=== PATIENT | female | born 1975 | race Caucasian/White ===

== ENCOUNTER 2020-05-25 10:17 | Emergency (ER) | payer OTHER ==
[2020-05-25 11:01] LABS: INR 1.09 (0.8-3.0); PROTIME 12.3 SECONDS (9.95-12.35)
[2020-05-25 11:03] LABS: PTT 28.3 SECONDS (25.3-37.0)
[2020-05-25 11:05] LABS: Absolute Neutrophil Ct (ANC) 5.38 (1.4-6.9); BASOPHIL % 0.2 % (0.0-0.4); Basophil (Absolute #) 0.02 (0-0.4); Eosinophil % 2.1 % (0.00-5.0); Eosinophil (Absolute #) 0.17 (0-0.5); Hematocrit 45.4 % (35-47); Hemoglobin 14.6 gm/dl (12.0-16.0); Lymphocyte (Absolute #) 1.83 (1.0-4.6); Lymphocytes % 22.5 % (24.0-44.0); Mean Cell Volume 89.7 fl (78-100); Mean Corpuscular Hemoglobin 28.9 pg (26-32); Mean Corpuscular Hgb Concent. 32.2 g/dl (32-36); Mean Platelet Volume 9.4 fl (7.5-11.0); Monocyte (Absolute #) 0.73 (0.0-1.3); Neutrophil % 66.2 % (36.0-66.0); Platelet Count 366 K/mm3 (150-450); Red Blood Count 5.06 M/mm3 (4.1-5.4); Red Cell Distribution Width 12.7 % (11.5-14.0); White Blood Count 8.1 K/mm3 (4.0-10.5)
--- NOTE | 2020-05-25 11:11 | XRAY ---
Indication: Cough. Comparison: August 28, 2010. Portable chest again demonstrates normal heart, lungs, and bony thorax.
--- NOTE | 2020-05-25 11:25 | ERPHSYRPT ---
- History of Present Illness Source: patient Exam Limitations: no limitations Patient Subjective Stated Complaint: SOB Triage Nursing Assessment: Patient ambulated back to ED and transferred self to bed. Patient A+O X3. Patient's skin pink, warm and dry. Patient complains of increased SOB and cough with chest tightness over the past few days. Patient tested Positive for Covid on 05/06/2020. Lungs clear a/p fabiana. Patient denies pain or discomfort. Physician History: 44 yo wf who tested + for CV19 presents w 2-3 days of dyspnea which is worse w coughing and exertion. Pt has some mild chest tightness but denies N/V/D/melena/hematochezia. She still has a mild non-productive cough. Timing/Duration: day(s) (2-3days) Activities at Onset: activity Severity of Dyspnea-Max: mild Severity of Dyspnea-Current: mild Possible Cause: occasional episodes Modifying Factors: Improves With: coughing Associated Symptoms: cough, chest pain/discomfort, No edema, No fever, No insom jovany, No loss of appetite, No lightheadedness, No wheezing, No weakness, No ankle swelling, No chills, No hemoptysis, No calf pain, No dizziness, No heaviness, No heart racing, No lightheadedness, No leg swelling, No muscle spasms feet, No muscle spasms hands, No painful breathing, No productive cough, No sweating, No tightness, No tingling face, No tingling hands Allergies/Adverse Reactions: amoxicillin Allergy (Verified 05/25/20 10:18) Home Medications: Lisinopril 10 mg [Zestril 10 MG] 1 tab PO HS 05/25/20 [History] Metformin HCl 500 mg [Glucophage 500 MG] 1 tab PO HS 05/25/20 [History] Hx Influenza Vaccination/Date Given: No Hx Pneumococcal Vaccination/Date Given: No Immunizations Up to Date: Yes Travel Risk - International Travel Have you traveled outside of the country in past 3 weeks: No - Coronavirus Screening Are you exhibiting any of the following symptoms?: Yes Symptoms: Shortness of Breath Close contact with a COVID-19 positive Pt in past 14-21 Days: No - Review of Systems Constitutional: No Symptoms, Lethargy Eyes: No Symptoms Ears, Nose, & Throat: No Symptoms Respiratory: Cough, Dyspnea, Dyspnea on Exertion (CARR) Cardiac: No Symptoms Abdominal/Gastrointestinal: No Symptoms Genitourinary Symptoms: No Symptoms Musculoskeletal: No Symptoms Skin: No Symptoms Neurological: No Symptoms Psychological: No Symptoms Endocrine: No Symptoms Hematologic/Lymphatic: No Symptoms Immunological/Allergic: No Symptoms - Past Medical History Pertinent Past Medical History: Yes Neurological History: No Pertinent History ENT History: No Pertinent History Cardiac History: Hypertension Respiratory History: No Pertinent History Endocrine Medical History: Diabetes Type II Musculoskeletal History: No Pertinent History GI Medical History: No Pertinent History History: No Pertinent History Psycho-Social History: No Pertinent History Female Reproductive Disorders: No Pertinent History - Past Surgical History Past Surgical History: No Neuro Surgical History: No Pertinent History Cardiac: No Pertinent History Respiratory: No Pertinent History Gastrointestinal: No Pertinent History Genitourinary: No Pertinent History Musculoskeletal: No Pertinent History Female Surgical History: No Pertinent History - Social History Smoking Status: Never smoker Exposure to second hand smoke: Yes Drug Use: none Patient Lives Alone: No Significant Family History: no pertinent family hx - Female History Hx Last Menstrual Period: one week ago Hx Now: No - Nursing Vital Signs Nursing Vital Signs: Initial Vital Signs Temperature 98.5 F 05/25/20 10:20 Pulse Rate 104 H 05/25/20 10:20 Respiratory Rate 18 05/25/20 10:20 Blood Pressure 153/121 05/25/20 10:20 O2 Sat by Pulse Oximetry 96 05/25/20 10:20 Pain Scale Pain Intensity 0 - Physical Exam General Appearance: no apparent distress Eye Exam: PERRL/EOMI, eyes nml inspection Ears, Nose, Throat Exam: hearing grossly normal, normal ENT inspection, normal pharynx Neck Exam: normal inspection, non-tender, supple, full range of motion, No Brudzinski, No Kernig's, No meningismus, No carotid bruit Respiratory Exam: normal breath sounds, lungs clear, airway intact, No respiratory distress Cardiovascular/Chest Exam: normal heart sounds, regular rate/rhythm, normal peripheral pulses, No murmur Abdominal/Gastrointestinal Exam: soft, normal bowel sounds, tenderness Extremity Exam: non-tender, normal range of motion, normal inspection, normal capillary refill Peripheral Pulses Exam: carotid (R): 2+, carotid (L): 2+ Neurologic Exam: alert, oriented x 3, cooperative, tool distributor II-XII nml as tested, normal mood/affect, nml cerebellar function, nml station & gait, sensation nml, No motor deficits, No sensory deficit Skin Exam: normal color Lymphatic Exam: No adenopathy SpO2 Interpretation: normal SpO2: 96 O2 Delivery: Room Air - Course Nursing assessment & vital signs reviewed: Yes EKG Interpreted by Me: RATE (NSR/R95/Normal QT-QTc/nonspecific ST changes) - Radiology Exams Chest X-ray Interpretation: Discussed w/ radiologist (Nothing acute) Ordered Tests: Active Orders 24 hr Category Date Time Status EKG-ER Only STAT Care 05/25/20 10:36 Completed IV Insertion STAT Care 05/25/20 10:36 Completed CHEST 1 VIEW (PORTABLE) Stat Exams 05/25/20 10:36 Completed CBC W DIFF Stat Lab 05/25/20 10:53 Completed CMP Stat Lab 05/25/20 10:53 Completed D-DIMER QUANTITATIVE Stat Lab 05/25/20 10:53 Completed NT PRO BNP Stat Lab 05/25/20 10:53 Completed PROTIME WITH INR Stat Lab 05/25/20 10:53 Completed PTT Stat Lab 05/25/20 10:53 Completed TROPONIN Q3H Lab 05/25/20 10:53 Completed TROPONIN Q3H Lab 05/25/20 13:45 Ordered TROPONIN Q3H Lab 05/25/20 16:45 Ordered TROPONIN Q3H Lab 05/25/20 19:45 Ordered TROPONIN Q3H Lab 05/25/20 22:45 Ordered Lab/Rad Data: Laboratory Result Diagrams 05/25/20 10:53 05/25/20 10:53 Laboratory Results 05/25/20 05/25/20 05/25/20 Range/Units 10:53 10:53 10:53 WBC (4.0-10.5) K/mm3 RBC (4.1-5.4) M/mm3 Hgb (12.0-16.0) gm/dl Hct (35-47) % MCV (78-100) fl MCH (26-32) pg MCHC (32-36) g/dl RDW (11.5-14.0) % Plt Count (150-450) K/mm3 MPV (7.5-11.0) fl Gran % (36.0-66.0) % Eos # (Auto) (0-0.5) Absolute Lymphs (auto) (1.0-4.6) Absolute Monos (auto) (0.0-1.3) Lymphocytes % (24.0-44.0) % Monocytes % (0.0-12.0) % Eosinophils % (0.00-5.0) % Basophils % (0.0-0.4) % Absolute Granulocytes (1.4-6.9) Basophils # (0-0.4) PT 12.3 (9.95-12.35) SECONDS INR 1.09 (0.8-3.0) APTT 28.3 (25.3-37.0) SECONDS D-Dimer 429 (215-500) ng/mL Sodium 139 (137-145) mmol/L Potassium 4.2 (3.5-5.1) mmol/L Chloride 103 (98-107) mmol/L Carbon Dioxide 29 (22-30) mmol/L Anion Gap 11.8 (5-15) MEQ/L BUN 14 (7-17) mg/dL Creatinine 0.65 (0.52-1.04) mg/dL Estimated GFR > 60.0 ML/MIN Glucose 99 (74-106) mg/dL Calcium 9.6 (8.4-10.2) mg/dL Total Bilirubin 1.00 (0.2-1.3) mg/dL AST 30 (14-36) U/L ALT 43 H (0-35) U/L Alkaline Phosphatase 59 (38-126) U/L Troponin I < 0.012 (0.000-0.034) ng/mL NT-Pro-B Natriuret Pep 21.9 (0-450) pg/mL Serum Total Protein 8.1 (6.3-8.2) g/dL Albumin 4.7 (3.5-5.0) g/dL 05/25/20 Range/Units 10:53 WBC 8.1 (4.0-10.5) K/mm3 RBC 5.06 (4.1-5.4) M/mm3 Hgb 14.6 (12.0-16.0) gm/dl Hct 45.4 (35-47) % MCV 89.7 (78-100) fl MCH 28.9 (26-32) pg MCHC 32.2 (32-36) g/dl RDW 12.7 (11.5-14.0) % Plt Count 366 (150-450) K/mm3 MPV 9.4 (7.5-11.0) fl Gran % 66.2 H (36.0-66.0) % Eos # (Auto) 0.17 (0-0.5) Absolute Lymphs (auto) 1.83 (1.0-4.6) Absolute Monos (auto) 0.73 (0.0-1.3) Lymphocytes % 22.5 L (24.0-44.0) % Monocytes % 9.0 (0.0-12.0) % Eosinophils % 2.1 (0.00-5.0) % Basophils % 0.2 (0.0-0.4) % Absolute Granulocytes 5.38 (1.4-6.9) Basophils # 0.02 (0-0.4) PT (9.95-12.35) SECONDS INR (0.8-3.0) APTT (25.3-37.0) SECONDS D-Dimer (215-500) ng/mL Sodium (137-145) mmol/L Potassium (3.5-5.1) mmol/L Chloride (98-107) mmol/L Carbon Dioxide (22-30) mmol/L Anion Gap (5-15) MEQ/L BUN (7-17) mg/dL Creatinine (0.52-1.04) mg/dL Estimated GFR ML/MIN Glucose (74-106) mg/dL Calcium (8.4-10.2) mg/dL Total Bilirubin (0.2-1.3) mg/dL AST (14-36) U/L ALT (0-35) U/L Alkaline Phosphatase (38-126) U/L Troponin I (0.000-0.034) ng/mL NT-Pro-B Natriuret Pep (0-450) pg/mL Serum Total Protein (6.3-8.2) g/dL Albumin (3.5-5.0) g/dL - Progress Progress Note: 05/25/20 11:54 Pt stable during stay. Blood pressure decreased wo treatment. Counseled pt/family regarding: lab results, diagnosis, need for follow-up, rad results - Departure Departure Disposition: Home Clinical Impression: Dyspnea Condition: Stable Critical Care Time: No Referrals: KAYLA FERNANDEZ MD [Primary Care Provider] - Instructions: Shortness of Breath (Dyspnea) (DC) Additional Instructions: Return to ER for chest pain or increasing shortness of breath Forms: Work/School Release Form
[2020-05-25 11:40] LABS: ALBUMIN 4.7 g/dL (3.5-5.0); ALKALINE PHOSPHATASE 59 U/L (38-126); ANION GAP 11.8 MEQ/L (5-15); BLOOD UREA NITROGEN 14 mg/dL (7-17); CHLORIDE 103 mmol/L (98-107); Calcium 9.6 mg/dL (8.4-10.2); Carbon Dioxide 29 mmol/L (22-30); Creatinine 1 0.65 mg/dL (0.52-1.04); EST GLOMERULAR FILTRATION RATE > 60.0 ML/MIN; Glucose 99 mg/dL (74-106); NT PRO BNP 21.9 pg/mL (0-450); Potassium 4.2 mmol/L (3.5-5.1); SGOT/AST 30 U/L (14-36); SGPT/ALT 43 U/L (0-35); SODIUM 139 mmol/L (137-145); Total Protein 8.1 g/dL (6.3-8.2)
[2020-05-25 12:17] VITALS: BP 132/82; PULSE 76
[2020-05-25 12:40] VITALS: O2SAT 96
== END 2020-05-25 12:04 | disposition home or self-care (01) ==
LOC: ED 10:17
DX: R06.00 Dyspnea, unspecified (principal); R05 Cough; R07.89 Other chest pain; Z79.899 Other long term (current) drug therapy; I10 Essential (primary) hypertension; E11.9 Type 2 diabetes mellitus without complications
CPT/HCPCS: 36000; 36415; 71045; 80053; 83880; 84484; 85025; 85379; 85610; 85730; 93005; 99284

== ENCOUNTER 2021-04-02 05:40 | Day surgery (SDC) | payer OTHER ==
[2021-04-02] MEDS ORDERED: Lactated Ringers 1,000 ML IV ONE (06:21)
[2021-04-02] MEDS ORDERED: Lactated Ringers 1,000 ML IV SCH (07:00)
[2021-04-02] MEDS ORDERED: Versed 2 MG/2 ML Injection ONE (07:25)
[2021-04-02] MEDS ORDERED: DIPRIVAN 200 MG/20 ML IV ONE ×2 (07:26→07:47)
[2021-04-02] MEDS ORDERED: SUBLIMAZE 100 MCG/2 ML ONE (07:40)
--- NOTE | 2021-04-02 14:30 | OP ---
SURGERY DATE/TIME: 04/02/2021 0729 PREOPERATIVE DIAGNOSIS: Screening exam. POSTOPERATIVE DIAGNOSIS: Normal colon. PROCEDURE: Colonoscopy. SURGEON: Dr. Hansen. ANESTHESIA: MAC. Medications given by anesthesia department. HISTORY: The patient is a 45-year-old white female who presents now for screening colonoscopy. The patient was appraised of the risks of the procedure including the risk of perforation, phlebitis, untoward reaction to medication, bleeding and missed lesions. The patient verbalized her understanding and desired to have the procedure performed. DESCRIPTION OF PROCEDURE: The patient is placed in left lateral decubitus position. Digital rectal examination was performed and revealed normal anal sphincter tone and no masses. The flexible Olympus pediatric colonoscope was used to intubate the rectum. A view of the colon was developed sequentially to the cecum. Upon insertion and withdrawal, including a retroflex view in the rectum, no mucosal lesions were encountered. The scope was removed from the patient who tolerated the procedure well and was sent back to OP recovery in good condition. The prep was noted to be fair.
[2021-04-02 17:10] VITALS: BP 124/86; PULSE 72; O2SAT 98
== END 2021-04-02 08:45 | disposition home or self-care (01) ==
LOC: SDC 05:40
PROVIDERS: ATTEND Family Medicine
DX: Z12.11 Encounter for screening for malignant neoplasm of colon (principal); E11.8 Type 2 diabetes mellitus with unspecified complications
CPT/HCPCS: 82947; J2250; J2704; J3010

== ENCOUNTER 2024-08-30 08:11 | Day surgery (SDC) | payer OTHER ==
[~2024-08-30 08:11] MED LIST: Sensorcaine 0.25% 10 ML ONE; Sodium Chloride 0.9% 1000 ML 1,000 ML ONE
[2024-08-30] MEDS ORDERED: Lactated Ringers 1,000 ML IV ONE ×2 (08:12→11:38)
[2024-08-30] MEDS ORDERED: CLINDAMYCIN-D5W 900 MG/50 ML*** 900 MG/50 ML BAG IV ONE (08:14)
[2024-08-30] MEDS ORDERED: Levofloxacin 500MG/100ML D5W 500 MG/100 ML BAG IV ONE (08:14)
[2024-08-30] MEDS: Levofloxacin 500MG/100ML D5W 500 MG/100 ML BAG IV SCH (08:20)
[2024-08-30] MEDS: Lactated Ringers 1,000 ML IV SCH (08:20)
[2024-08-30] MEDS: CLINDAMYCIN-D5W 900 MG/50 ML*** 900 MG/50 ML BAG IV SCH (08:21)
[2024-08-30 08:28] LABS: HCG URINE TEST NEGATIVE (NEGATIVE)
[2024-08-30 08:52] LABS: ANION GAP 13.9 MEQ/L (5-15); Calcium 9.4 mg/dL (8.4-10.2); Creatinine 1 0.73 mg/dL (0.52-1.04); EST GLOMERULAR FILTRATION RATE 101.4 ML/MIN; Potassium 4.1 mmol/L (3.5-5.1)
--- NOTE | 2024-08-30 10:05 | HP ---
HISTORY OF PRESENT ILLNESS: Her back pain worsens when rolls over on either side. Sometimes takes her breath away, sometimes upper abdominal pain. Ultrasound with stones. HIDA decreased ejection fraction of 18%. PAST MEDICAL HISTORY: Has some history of spinal stenosis, wears some corrective lenses. HOME MEDICATIONS: Alprazolam, lisinopril. ALLERGIES: Amoxicillin. PAST SURGICAL HISTORY: Tubal in the past. SOCIAL HISTORY: No smoking. Occasional alcohol use. FAMILY HISTORY: Heart disease, CHF. REVIEW OF SYSTEMS: Twelve systems reviewed. No chest pain or palpitations. Other systems negative or noncontributory as above and per preadmission questionnaire. PHYSICAL EXAMINATION: GENERAL: Height 5 feet 4 inches, BMI 37.76. No acute distress. HEENT: Sclerae nonicteric. Extraocular movements intact. Oral mucous membranes moist. NECK: No JVD. CARDIOVASCULAR: Regular rate and rhythm. RESPIRATORY: Equal excursion. Nonlabored breathing. ABDOMEN: Soft. SKIN: Dry. EXTREMITIES: No cyanosis or edema. NEUROLOGICAL: Alert and oriented, moving all extremities symmetrically. PSYCHIATRY: Appropriate mood and affect. IMPRESSION: Acute exacerbation of chronic cholecystitis, symptomatic biliary dyskinesia. Offered cholecystectomy. Risks including but not limited to bleeding; infection; risk of trocar injury or hernia; risk of bile leak, bile duct injury, retained stone or sludge possibly requiring further procedure, either open or ERCP; general risk of anesthesia, DVT, PE, pneumonia; risk of aches, pains, bloating, constipation, and/or loose stools possibly chronic in nature; possibility of no improvement of preop symptoms as she does have some back problems anyway; possibly requiring further workup or studies, endoscopy or referrals. She understands and agreed to the planned procedure. We will proceed with outpatient laparoscopic cholecystectomy, possible open as an outpatient. Otherwise, continue medications for hypertension, anxiety.
[2024-08-30] MEDS ORDERED: Reglan 10 MG/2 ML ONE (10:29)
[2024-08-30] MEDS ORDERED: Transderm Scop 1.5MG Patch ONE (10:29)
[2024-08-30] MEDS ORDERED: Pepcid 20 MG VIAL IV ONE ×2 (10:29→10:31)
[2024-08-30] MEDS ORDERED: Reglan 10 MG/2 ML IV ONE (10:31)
[2024-08-30] MEDS ORDERED: Transderm Scop 1.5MG Patch TOP PRN (10:31)
[2024-08-30] MEDS ORDERED: ROCURONIUM BROMIDE IV ONE (10:50)
[2024-08-30] MEDS ORDERED: DEXMEDETOMIDINE 80 MCG/20ML-NS IV ONE (10:50)
[2024-08-30] MEDS ORDERED: Zofran 4 MG/2 ML VIAL ONE ×2 (10:50→12:29)
[2024-08-30] MEDS ORDERED: dexAMETHasone sodium phosphate ONE (10:50)
[2024-08-30] MEDS ORDERED: Xylocaine-Mpf 2% 5 Ml Vial ONE (10:50)
[2024-08-30] MEDS ORDERED: BRIDION 200MG/2ML IV ONE (10:50)
[2024-08-30] MEDS ORDERED: TORAdol 30 mg Injection ONE (10:50)
[2024-08-30] MEDS ORDERED: propofoL IV ONE (10:50)
[2024-08-30] MEDS ORDERED: SUBLIMAZE 100 MCG/2 ML ONE (10:52)
[2024-08-30] MEDS ORDERED: Versed 2 MG/2 ML Injection ONE (10:52)
[2024-08-30] MEDS ORDERED: Pre-Attached Lta Kit TP ONE (11:07)
[2024-08-30] MEDS ORDERED: PHENYLEPHRINE HCL ONE (11:24)
[2024-08-30] MEDS ORDERED: Compazine 10 MG/2 ML ONE (12:54)
[2024-08-30 13:27] VITALS: RESP 16; O2SAT 100
[2024-08-30 13:44] VITALS: BP 113/80; PULSE 85; TEMP 97
--- NOTE | 2024-08-31 09:11 | OP ---
SURGERY DATE/TIME: 08/30/2024 PREOPERATIVE DIAGNOSIS: Acute exacerbation of chronic cholecystitis and symptomatic chronic cholelithiasis. POSTOPERATIVE DIAGNOSIS: Acute exacerbation of chronic cholecystitis and symptomatic chronic cholelithiasis. PROCEDURE: Laparoscopic cholecystectomy. SURGEON: Chi Armas MD. ANESTHESIA: General. ESTIMATED BLOOD LOSS: Minimal. INDICATIONS: Consent was obtained. DESCRIPTION OF PROCEDURE AND FINDINGS: The patient was taken to the operating room. General anesthesia was induced. She was prepped and draped in the usual sterile fashion. After official time-out, no disagreement in planned procedure, a transverse incision was made at the supraumbilical area. Fascia grasped and pulled upward. Veress needle inserted. Tested with saline. Pneumoperitoneum accomplished insufflating from an opening pressure of 0-15. A 5 mm bladeless port and camera inserted without difficulty, followed by two 5 mm right upper quadrant ports. It should be noted even though she had a prior up-and-down upper abdomen laparotomy from the pyloric issues years ago she fortunately did not have significant adhesions to the anterior abdominal wall. Therefore, it allowed us to place the 11 port in the epigastrium. Gallbladder had some chronic inflammation. It was grasped and retracted to the edge of the liver and in line with Calot triangle, and dissection was carried posterolateral to anterior fashion. Slowly, carefully the cystic duct/infundibular area cystic artery isolated until critical view was obtained anteriorly and posteriorly. Once this was accomplished, cystic duct/cystic artery clipped x3 and divided in the usual fashion. The gallbladder was slowly, carefully dissected free from its dense attachments to the liver bed staying directly on the gallbladder wall. Just prior to releasing it from its final attachments to the anterior edge of the liver, the liver bed reinspected. The clips were noted to be in place in the cystic duct/cystic artery stumps. No signs of any active bleeding or bile leakage. [place] there was no benefit from drain placement. The gallbladder was released from its final attachments to the anterior edge of the liver. It was pulled up and out the epigastric wound and passed off for pathology. The epigastric 11 mm site was closed with puncture closure device as well as #1 Vicryl under direct vision of the camera. At this point, the liver bed was reinspected one last time. Clips noted to be in place in cystic duct/cystic artery stumps. No signs of any active bleeding or bile leakage. It was felt there was no benefit from drain placement. Clips noted to be in place in cystic duct/cystic artery stumps. Pneumoperitoneum decompressed. Wounds irrigated out. Skin incisions closed with 4-0 Vicryl. 0.25% Marcaine local injected along each skin incision and fascial defect. 0.25% Marcaine local had been injected along each skin incision and fascial defect at the beginning of the procedure. There were no immediate complications. Findings were discussed with the family out in the waiting area.
== END 2024-08-30 13:49 | disposition home or self-care (01) ==
LOC: SDC 08:11
PROVIDERS: ATTEND Surgery
DX: K80.10 Calculus of gallbladder with chronic cholecystitis without obstruction (principal)
CPT/HCPCS: 36415; 80048; 81025; 93005; J1100; J1885; J1956; J2250; J2371; J2405; J2704; J3010; A9270-GY